=== PATIENT | female | born 1990 | race Caucasian/White ===

== ENCOUNTER 2017-06-28 07:10 | Emergency (ER) | payer OTHER | END 2017-06-28 08:20 | disposition home or self-care (01) | LOC: FER 07:10 | DX: M79.7 Fibromyalgia (principal); F17.210 Nicotine dependence, cigarettes, uncomplicated; Z88.6 Allergy status to analgesic agent; Z79.899 Other long term (current) drug therapy | CPT/HCPCS: J1885 ==